=== PATIENT | female | born 1950 | race Caucasian/White ===

== ENCOUNTER 2019-02-07 17:27 | Emergency (ER) | payer MEDICARE, MEDICAID ==
[~2019-02-07] VITALS: Ht 165.1 cm; Wt 150.0 kg
--- NOTE | 2019-02-07 17:30 | NUR ---
VAGINAL BLEEDING WITH CLOTS TODAY. SIMILAR EPISODE LAST MONTH. NO REGULAR MENSTRUAL CYCLES FOR APPROX 15-20 YEARS. DENIES SOB/CHEST PAIN/EXERTIONAL FATIGUE-HOWEVER, APPEARS PALE TO RADIOCOMMUNICATIONS TECHNICIAN (PATIENT REPORTS THIS HER BASELINE) VSS 54, 121/51 (HOWEVER ON METOPROLOL)
--- NOTE | 2019-02-07 18:15 | NUR ---
LAB AT BEDSIDE
[2019-02-07] MEDS ORDERED: FURO-92 PO (18:34)
[2019-02-07] MEDS ORDERED: POLY17PO5 PO (18:34)
[2019-02-07] MEDS ORDERED: LISI-170 PO (18:34)
[2019-02-07] MEDS ORDERED: RIVA10TA2 PO (18:34)
[2019-02-07] MEDS ORDERED: POTA10CA PO (18:34)
[2019-02-07] MEDS ORDERED: METO200T47 PO (18:34)
[2019-02-07] MEDS ORDERED: GABA300C10 PO (18:34)
[2019-02-07 18:45] LABS: BASOPHILS # (AUTO) 0.02 x10^3/uL (0-0.1); BASOPHILS % (AUTO) 0 % (0-1); EOSINOPHILS # (AUTO) 0.16 x10^3/uL (0-0.4); EOSINOPHILS % (AUTO) 3 % (1-7); LYMPHOCYTES # (AUTO) 0.98 x10^3/uL (1-3.4); LYMPHOCYTES % (AUTO) 20 % (22-44); MD NO; MEAN CORPUSCULAR HEMOGLOBIN 28.7 pg (27.0-34.8); MEAN CORPUSCULAR HGB CONC 31.9 g/dL (32.4-35.8); MEAN CORPUSCULAR VOLUME 90.1 fL (80-100); MONOCYTES # (AUTO) 0.54 x10^3/uL (0.2-0.8); MONOCYTES % (AUTO) 11 % (2-9); NEUTROPHILS # (AUTO) 3.31 x10^3/uL (1.8-6.8); NEUTROPHILS % (AUTO) 66 % (42-75); PLATELET COUNT 195 x10^3/uL (130-400); RED CELL DISTRIBUTION WIDTH 15.1 % (9.6-15.2)
[2019-02-07 18:51] LABS: ALBUMIN 3.2 g/dL (3.4-5.0); ANION GAP 4 mmol/L (5-15); CALCIUM 8.8 mg/dL (8.5-10.1); CHLORIDE 107 mmol/L (98-107)
[2019-02-07 18:55] LABS: ALANINE AMINOTRANSFERASE 13 U/L (12-78); ALKALINE PHOSPHATASE 90 U/L (45-117); BILIRUBIN,TOTAL 0.5 mg/dL (0.2-1.0); CREATININE 0.93 mg/dL (0.55-1.02)
--- NOTE | 2019-02-07 18:55 | NUR ---
BACK FROM US REMAIN ASYMPTOMATIC MINIMAL AMOUNT OF SEROSANGUINOUS VAGINAL DISCHARGE NOTED (<50Ml) CLEANSED WITH SOAPY WASHCLOTH DIASTOLIC NOTED TO BE 39-REPEATING PRESSURE. PROVIDER MADE AWARE MED RECC COMPLETED-ON XARELTO-PATIENT UNSURE WHY
[2019-02-07 18:57] LABS: INTERNATIONAL NORMALIZED RATIO 1.04 (0.93-1.1); PROTHROMBIN TIME 10.9 Seconds (9.6-11.5)
--- NOTE | 2019-02-07 19:08 | NUR ---
Report to Benjie NÚÑEZ
--- NOTE | 2019-02-07 20:51 | NUR ---
[facility] CALLED. SPOKE TO DENNISE. TRANSPORT ARRANGED BACK TO [facility]
--- NOTE | 2019-02-07 20:57 | NUR ---
Called [facility] and gave report to Triston @[id number] who accepted pt back to facility.
--- NOTE | 2019-02-07 21:35 | NUR ---
PT RESTING IN BED, PT A/O X4 SPEAKING FULL SENTENCES. PT IS AWAITING ARIVAL OF TRANSPORTATION BACK TO [facility].
--- NOTE | 2019-02-07 21:37 | NUR ---
PT PROVIDED SOME WATER AND CRACKERS BY RN.
--- NOTE | 2019-02-07 21:38 | NUR ---
[facility], [facility] CALLED BACK AND STATES WILL BE DELAYED HOWEVER WILL SEND AN AMBULANCE WHEN ONE BECOMES AVAILABLE.
--- NOTE | 2019-02-07 21:58 | NUR ---
JOSE ALFREDO HAS ARRIVED, PAPERWORK GIVEN
[2019-02-07 22:06] VITALS: BP 126/80
== END 2019-02-07 22:09 | disposition home or self-care (01) ==
LOC: ED 19:21
DX: N95.0 Postmenopausal bleeding (principal)
CPT/HCPCS: 36415; 76830; 80053; 85025; 85610; 85730; 86850; 86900; 93005; 99284

== ENCOUNTER 2019-09-26 03:21 | Observation (INO) | payer MEDICARE, MEDICAID ==
[~2019-09-26] VITALS: Ht 165.1 cm; Wt 155.8 kg
[~2019-09-26 03:21] MED LIST: FURO-92 PO; GABA300C10 PO; LISI-170 PO; METO200T47 PO; POLY17PO5 PO; POTA10CA PO; RIVA10TA2 PO
[2019-09-26] MEDS ORDERED: MORPHINE SULFATE 4 MG/ML, 1ML ONE (03:41)
[2019-09-26] MEDS ORDERED: ONDANSETRON 2MG/ML, 2ML ONE (03:41)
[2019-09-26] MEDS ORDERED: MORPHINE SULFATE 4 MG/ML, 1ML IVPush PRN (04:00)
[2019-09-26] MEDS ORDERED: SODIUM CHLORIDE FLUSH 10ML SYR IVF ONE (04:00)
[2019-09-26] MEDS ORDERED: DIAZEPAM 5 MG/ML, 2ML IV ONE (04:00)
[2019-09-26] MEDS ORDERED: ONDANSETRON 2MG/ML, 2ML IVPush ONE (04:00)
[2019-09-26] MEDS ORDERED: DIAZEPAM 5 MG/ML, 2ML ONE (04:19)
[2019-09-26 04:25] LABS: MEAN CORPUSCULAR HGB CONC 31.3 g/dL (32.4-35.8); MEAN CORPUSCULAR VOLUME 76.5 fL (80-100); MEAN PLATELET VOLUME 9.3 fL (7.4-10.4); PLATELET COUNT 256 x10^3/uL (130-400); RED CELL DISTRIBUTION WIDTH 24.2 % (9.6-15.2)
[2019-09-26 04:31] LABS: ALBUMIN 2.9 g/dL (3.4-5.0); ANION GAP 5 mmol/L (5-15); CHLORIDE 104 mmol/L (98-107)
[2019-09-26 04:32] LABS: MD YES
[2019-09-26 04:35] LABS: ANISOCYTOSIS 1+; BAND#(MANUAL) 0.42 x10^3/uL; BANDS%(MANUAL) 5 % (0-7); LYMPH#(MANUAL) 0.92 x10^3/uL (1-3.4); LYMPHS% (MANUAL) 11 % (22-44); MONOS#(MANUAL) 0.17 x10^3/uL (0.3-2.7); MONOS% (MANUAL) 2 % (2-9); SEG#(MANUAL) 6.89 x10^3/uL (1.8-6.8); SEGS% (MANUAL) 82 % (42-75)
[2019-09-26 04:36] LABS: OVALOCYTES 1+; POLYCHROMASIA 1+; TARGET CELLS 1+
[2019-09-26 04:37] LABS: <PLATELET ESTIMATE> ADEQUATE; <PLT MORPHOLOGY> NORMAL PLT MORPH
[2019-09-26 04:39] LABS: ALANINE AMINOTRANSFERASE 17 U/L (12-78); ALKALINE PHOSPHATASE 109 U/L (45-117); BILIRUBIN,TOTAL 1.7 mg/dL (0.2-1.0); CREATININE 0.73 mg/dL (0.55-1.02); TOTAL PROTEIN 8.9 g/dL (6.4-8.2); TROPONIN I < 0.015 ng/mL (0.000-0.045)
--- NOTE | 2019-09-26 04:40 | NUR ---
PT RESTING COMFORTABLY. MONITOR IN PLACE. PT PLACED ON 3L 02 FOR DECREASED SAT WHILE RESTING. SPO2 97% ON 3L.
--- NOTE | 2019-09-26 05:19 | NUR ---
PT BACK FROM CT. MONITOR IN PLACE.
--- NOTE | 2019-09-26 05:44 | NUR ---
UA COLLECTED VIA STRAIGHT CATH WITH ANA MARÍA ASSIST. LINEN CHANGE COMPLETE. REMOVED A LARGE AMT OF STOOL FROM PT. PT CLEANED WITH SOAP AND WATER.
[2019-09-26 06:29] LABS: MICROSCOPIC INDICATED
--- NOTE | 2019-09-26 06:52 | NUR ---
CASE ASSISTANT: CT CONTACTED REGARDING PENDING CTA READ. TECH TO FOLLOW UP. ERP AWARE
[2019-09-26] MEDS ORDERED: OMNIPAQUE 350 MG/ML, 150 ML BOTTLE ONE (07:00)
[2019-09-26] MEDS: HEPARIN 5,000 UNITS/ML, 1ML SQ SCH ×2 (07:30→16:52)
[2019-09-26] MEDS ORDERED: hydrALAzine 20 MG/ML, 1ML IVPush PRN (07:30)
[2019-09-26] MEDS ORDERED: ONDANSETRON 2MG/ML, 2ML IVPush PRN (07:30)
[2019-09-26] MEDS ORDERED: GUAIFENESIN/DM 200-20MG, 10ML UDC PO PRN (07:30)
[2019-09-26] MEDS ORDERED: LABETALOL 5MG/ML, 20ML IVPush PRN (07:30)
[2019-09-26] MEDS ORDERED: TRAZODONE 50MG TABLET PO PRN (07:30)
[2019-09-26] MEDS ORDERED: ONDANSETRON ODT 4 MG PO PRN (07:30)
[2019-09-26] MEDS ORDERED: BUTALB/APAP/CAFFEINE 50MG/325MG/40MG PO PRN (07:30)
[2019-09-26] MEDS ORDERED: HYDROmorphone 2 MG/ML, 1ML IVPush PRN (07:30)
[2019-09-26] MEDS ORDERED: ACETAMINOPHEN 325 MG TABLET PO PRN (07:30)
[2019-09-26] MEDS ORDERED: BACLOFEN 10 MG TABLET PO PRN (07:30)
--- NOTE | 2019-09-26 07:45 | NUR ---
LATE ENTRY FOR 0650 RECEIVED BEDSIDE REPORT FROM CECILIA Loja RN.
--- NOTE | 2019-09-26 07:46 | NUR ---
PT GIVEN MORE WARM BLANKETS. PT RESTING ON GURNEY. NADN. NO NEEDS REQUESTED AT THIS TIME.
[2019-09-26] MEDS ORDERED: LISINOPRIL 20 MG TABLET PO SCH (09:00)
[2019-09-26] MEDS ORDERED: METOPROLOL SUCCINATE 100 MG TAB.ER.24H PO SCH (09:00)
[2019-09-26] MEDS ORDERED: FUROSEMIDE 40 MG TABLET PO SCH (09:00)
[2019-09-26] MEDS ORDERED: POLYETHYLENE GLYCOL 17 GM PACKET PO SCH (09:00)
--- NOTE | 2019-09-26 09:10 | NUR ---
PT CONTINUES TO REST ON [place]. VSS. HOSPITALIST LEFT BEDSIDE. PT TO BE ADMITTED.
--- NOTE | 2019-09-26 09:17 | NUR ---
LATE ENTRY FOR 911 FIRST ATTEMPT TO CALL REPORT. RECEIVING RN UNAVAILABLE TO TAKE REPORT.
--- NOTE | 2019-09-26 09:50 | NUR ---
REPORT TO WILTON MIGUEL. ALL QUESTIONS ANSWERED.
--- NOTE | 2019-09-26 10:07 | NUR ---
pt transferred to floor. pt left with all personal belongings.
[2019-09-26 11:12] VITALS: BP 91/57
[2019-09-26 12:34] VITALS: BP 112/73
[2019-09-26] MEDS: POLYETHYLENE GLYCOL 17 GM PACKET PO SCH (12:43)
[2019-09-26] MEDS: GABAPENTIN 300 MG CAPSULE PO SCH ×3 (12:43→21:17)
[2019-09-26] MEDS: POTASSIUM CHLORIDE 10 MEQ TABLET.ER PO SCH (12:44)
[2019-09-26 13:42] VITALS: BP 91/57
[2019-09-26 19:22] VITALS: BP 92/61
[2019-09-27] MEDS: HEPARIN 5,000 UNITS/ML, 1ML SQ SCH ×3 (00:23→16:02)
[2019-09-27 01:08] VITALS: BP 91/60
[2019-09-27 07:24] VITALS: BP 111/69
[2019-09-27] MEDS: POTASSIUM CHLORIDE 10 MEQ TABLET.ER PO SCH (08:36)
[2019-09-27] MEDS: POLYETHYLENE GLYCOL 17 GM PACKET PO SCH (08:36)
[2019-09-27] MEDS: LISINOPRIL 5 MG TABLET PO SCH (08:37)
[2019-09-27] MEDS: GABAPENTIN 300 MG CAPSULE PO SCH ×3 (08:37→20:11)
[2019-09-27] MEDS: METOPROLOL SUCCINATE 100 MG TAB.ER.24H PO SCH (08:38)
[2019-09-27] MEDS: FUROSEMIDE 40 MG TABLET PO SCH (08:38)
[2019-09-27] MEDS ORDERED: OMNIPAQUE 350 MG/ML, 100ML BOTTLE ONE (12:21)
[2019-09-27 14:00] VITALS: BP 106/73
[2019-09-27 18:39] VITALS: BP 101/67
[2019-09-28] MEDS: HEPARIN 5,000 UNITS/ML, 1ML SQ SCH ×2 (00:47→08:25)
[2019-09-28 01:28] VITALS: BP 99/67
[2019-09-28 07:10] VITALS: BP 102/69
[2019-09-28] MEDS: POLYETHYLENE GLYCOL 17 GM PACKET PO SCH (08:24)
[2019-09-28] MEDS: FUROSEMIDE 40 MG TABLET PO SCH (08:25)
[2019-09-28] MEDS: POTASSIUM CHLORIDE 10 MEQ TABLET.ER PO SCH (08:25)
[2019-09-28] MEDS: METOPROLOL SUCCINATE 100 MG TAB.ER.24H PO SCH (08:26)
[2019-09-28] MEDS: GABAPENTIN 300 MG CAPSULE PO SCH (08:26)
[2019-09-28] MEDS: LISINOPRIL 5 MG TABLET PO SCH (08:29)
[2019-09-28 12:38] VITALS: BP 122/74
== END 2019-09-28 16:08 ==
LOC: ED 06:36 → INTOOBSV 07:18 → EDIP 07:18 → 3N 10:05
PROVIDERS: ADMIT Family Medicine; ATTEND Internal Medicine Infectious Disease
DX: M54.6 Pain in thoracic spine (principal); E66.01 Morbid (severe) obesity due to excess calories; I48.91 Unspecified atrial fibrillation; I10 Essential (primary) hypertension; E11.9 Type 2 diabetes mellitus without complications; I71.00 Dissection of unspecified site of aorta; C64.2 Malignant neoplasm of left kidney, except renal pelvis; M19.90 Unspecified osteoarthritis, unspecified site; Z79.899 Other long term (current) drug therapy
CPT/HCPCS: 36415; 71275; 73560; 74175; 74178; 80053; 81001; 83690; 84484; 85025; 87086; 93005; 96372; 96374; 96375; 99285; G0378; J1644; J2270; J2405; J3360; Q9967

== ENCOUNTER → 2020-02-25 | Outpatient (CLI) | payer MEDICARE, MEDICAID ==
[~2020-02-25] MED LIST changes: +OMNIPAQUE 350 MG/ML, 150 ML BOTTLE ONE
== END | disposition home or self-care (01) ==
LOC: RAD 07:20
PROVIDERS: ATTEND Physician Assistant
DX: T81.89XA Other complications of procedures, not elsewhere classified, initial encounter (principal); R60.9 Edema, unspecified; Y83.8 Other surgical procedures as the cause of abnormal reaction of the patient, or of later complication, without mention of misadventure at the time of the procedure; Y92.89 Other specified places as the place of occurrence of the external cause; Z90.5 Acquired absence of kidney
CPT/HCPCS: 74177; Q9967